=== PATIENT | male | born 1990 | race Caucasian/White ===

== ENCOUNTER 2019-03-04 08:42 | Day surgery (SDC) | payer OTHER ==
[~2019-03-04] VITALS: Ht 177.8 cm; Wt 80.2 kg
[2019-03-04] VITALS (12 sets, daily range): BP systolic 108–137; BP diastolic 55–82; PULSE 50–100; RESP 12–28; Ht 177.8 cm; Wt 80.2 kg
[~2019-03-04 08:42] MED LIST: CEFAZOLIN 1 GM/50 ML (PMX) 50 ML IVPB ONE; SOD CHLORIDE 0.9% 1,000 ML IV SCH
[2019-03-04] MEDS ORDERED: ACETAMINOPHEN 500 MG TAB PO STA (10:15)
[2019-03-04] MEDS ORDERED: ACETAMINOPHEN 500 MG TAB ONE (10:19)
[2019-03-04] MEDS ORDERED: MEPERIDINE 25 MG INJ IV PRN (10:30)
[2019-03-04] MEDS ORDERED: FENTAnyl 50 MCG/ML VIAL IV PRN ×2 (10:30)
[2019-03-04] MEDS ORDERED: GLYCOPYRROLATE 0.4 MG INJ ONE (10:30)
[2019-03-04] MEDS ORDERED: morphine 2 MG INJ IV PRN ×2 (10:30)
[2019-03-04] MEDS ORDERED: HYDROmorphONE 1 MG/5 ML IV SYRINGE IV PRN ×3 (10:30)
[2019-03-04] MEDS ORDERED: ALBUTEROL 0.083% (NEB) 2.5 MG/3 ML AMP HHN PRN (10:30)
[2019-03-04] MEDS ORDERED: DIPHENHYDRAMINE 50 MG INJ IV PRN (10:30)
[2019-03-04] MEDS ORDERED: OXYCODONE/ACETAMINOPHEN (5/325) TAB PO PRN ×2 (10:30)
[2019-03-04] MEDS ORDERED: ONDANSETRON 4 MG INJ IV PRN (10:30)
[2019-03-04] MEDS ORDERED: hydrALAzine 20 MG INJ IV PRN (10:30)
[2019-03-04] MEDS ORDERED: EPHEDrine 25 MG/5 ML SYG IV PRN (10:30)
[2019-03-04] MEDS ORDERED: LABETALOL HCL 20MG INJ IV PRN (10:30)
[2019-03-04] MEDS ORDERED: CEFAZOLIN 1 GM INJ ONE (10:32)
[2019-03-04] MEDS ORDERED: LIDOCAINE 2% (SDV) 5 ML INJ ONE (10:32)
[2019-03-04] MEDS ORDERED: PROPOFOL 40 ML ONE (10:32)
[2019-03-04] MEDS ORDERED: FENTAnyl 50 MCG/ML VIAL ONE (10:33)
[2019-03-04] MEDS ORDERED: FAMOTIDINE 20 MG INJ ONE (10:33)
[2019-03-04] MEDS ORDERED: MIDAZOLAM 1 MG/ML 2 ML INJ ONE (10:33)
[2019-03-04] MEDS ORDERED: ONDANSETRON 4 MG INJ ONE (10:33)
[2019-03-04] MEDS ORDERED: BUPIVACAINE 0.5%/EPI (SDV) 30 ML INJ ONE (11:18)
== END 2019-03-04 13:40 | disposition home or self-care (01) ==
LOC: SDS 08:42
PROVIDERS: ATTEND Surgery Surgical Oncology
DX: D17.1 Benign lipomatous neoplasm of skin and subcutaneous tissue of trunk (principal); D17.22 Benign lipomatous neoplasm of skin and subcutaneous tissue of left arm; R19.00 Intra-abdominal and pelvic swelling, mass and lump, unspecified site; R22.32 Localized swelling, mass and lump, left upper limb
CPT/HCPCS: 22902; 24075; 88307; J0690; J2250; J2405; J3010; Z7512; Z7610